=== PATIENT | male | born 1970 | race African-American/Black ===

== ENCOUNTER → 2017-11-21 | Outpatient (CLI) | payer OTHER, BC ==
[~2017-11-21] MED LIST: NAPROSYN500 MG PO; NOHOMEMEDICATIONS; TRAMADOL 50 MG50 MG PO; VALIUM5 MG PO
== END ==
LOC: HYPER 11-07 06:41
DX: L97.821 Non-pressure chronic ulcer of other part of left lower leg limited to breakdown of skin (principal); M54.5 Low back pain; F17.290 Nicotine dependence, other tobacco product, uncomplicated

== ENCOUNTER 2018-11-08 10:15 | Emergency (ER) | payer BC ==
[~2018-11-08] VITALS: Ht 182.9 cm; Wt 76.2 kg
--- NOTE | ~2018-11-08 | EMS ---
[address] [address] EMS Patient Care Report Name: ZHAO FOSTER Room #: DEP RAJIV Mayo#: [id number] Admission: 11/08/18 ������������������ Attend Phys: Discharge: 11/08/18 ������������������ Date of : 68 Report #: [id number] THIS REPORT FOR: //name// Report Transmitted: 11/09/2018 01:13 EMS Care Summary [place], [place]/[facility] Incident [id number] @ 11/08/2018 09:41 Incident Location [facility] [address] [place] [id number] Patient ZHAO FOSTER Male, 48 Years 1970 Patient Address [address] [place] [address] Patient History None Reported, Patient Allergies No known allergies, Patient Medications None Reported, Chief Complaint right sided chest pain Disposition Transported No Lights/[place] [facility] Reason Sick Person Transported To [facility] Narrative pt is found sitting in a truck at the scene. pt states that he woke up this morning and noticed that he had some minor pain to the right side of his chest. pt says that he did ignore the pain. pt now states that the pain is worse than it has been all day. pt describes the pain as sharp but non radiating. pt also [address] [address] EMS Patient Care Report Name: ZHAO FOSTER Room #: DEP ER Maria Esther#: [id number] Admission: 11/08/18 ������������������ Attend Phys: Discharge: 11/08/18 ������������������ Date of : 68 Report #: [id number] states that the pain does get worse with breathing and when the area is palpated. pt also complaining of being a little short of breath. pt denies any nausea or vomiting. pt has no other complaints of illness or injury. pt remains alert during transport. Initial Vitals @09:48P: 77,R: 16,GCS: 15,CO: 6,SpO2: 100,SC Suspected: false @09:47P: 85,R: 14,BP: 129/83,Pain: 8/10,GCS: 15,Revised Trauma: 12,SC Suspected: false @10:06P: 81,R: 14,BP: 125/80,Pain: 8/10,GCS: 15,CO: 5,Revised Trauma: 12, Assessments @09:45MENTAL:No Abnormalities,SKIN:No Abnormalities,HEENT:Head/Face: No Abnormalities,Eyes: No Abnormalities,Neck/Airway: No Abnormalities,LUNG SOUNDS:General: No Abnormalities,Left Upper: No Abnormalities,Right Upper: No Abnormalities,Left Lower: No Abnormalities,Right Lower: No Abnormalities,ABDOMEN:General: No Abnormalities,Left Upper: No Abnormalities,Right Upper: No Abnormalities,Left Lower: No Abnormalities,Right Lower: No Abnormalities,PELVIS//GI:No Abnormalities,EXTREMITIES:Left Arm: No Abnormalities,Right Arm: No Abnormalities,Left Leg: No Abnormalities,Right Leg: No Abnormalities,PULSE:NEURO:No Abnormalities, Impression Chest pain on breathing Procedures @09:45ALS AssessmentResponse: UnchangedSucceeded@09:483-Lead ECGResponse: UnchangedSucceeded@09:50Oxygen FlowRate: 3 Device: Nasal Cannula (NC) Response: UnchangedSucceeded@09:55Saline Lock 0cc (20 ga) Site: Forearm-RightResponse: UnchangedSucceeded Timeline 09:39,Call Received 09:39,Dispatch Notified 09:41,Dispatched 09:42,En Route 09:45,On Scene 09:45,At Patient 09:45,ALS Assessment,Response: UnchangedSucceeded, 09:47,BP: 129/83 M,PULSE: 85,RR: 14 R,SPO2: Ox,ETCO2: ,BG: ,PAIN: 8,GCS: 15, 09:48,3-Lead ECG,Response: UnchangedSucceeded, 09:48,BP: / M,PULSE: 77,RR: 16 R,SPO2: 100 Ox,ETCO2: ,BG: ,PAIN: ,GCS: 15, 09:50,Oxygen FlowRate: 3 Device: Nasal Cannula (NC) Response: UnchangedSucceeded, 09:55,Saline Lock 0cc 20 ga Site: Forearm-Right,Response: UnchangedSucceeded, 09:58,Depart Scene [facility] [address] [place] [address] EMS Patient Care Report Name: CRISTIANZHAO Room #: [facility] Maria Esther#: [id number] Admission: 11/08/18 ������������������ Attend Phys: Discharge: 11/08/18 ������������������ Date of : 68 Report #: [id number] 10:06,BP: 125/80 M,PULSE: 81,RR: 14 R,SPO2: Ox,ETCO2: ,BG: ,PAIN: 8,GCS: 15, 10:10,At Destination 10:31,Call Closed Disclaimer v1.1 Copyright 2019 [employer] This EMS Care Summary contains data elements from the applicable legal record (which may be displayed differently). It is designed to provide pertinent information for the following purposes: continuity of care, clinical quality, and state data reporting. The complete legal record is available to ED staff and administrators of the receiving hospital in [employer] Patient Tracker. All data is provided "as is."
[2018-11-08] MEDS ORDERED: CHANTIX1 EACH PO (10:26)
[2018-11-08 10:46] LABS: ABSOLUTE NEUTROPHILS 6.9 thou/uL (1.4-8.2); HEMATOCRIT 44.4 % (42.0-52.0); LYMPHOCYTES 28.6 % (24.0-44.0); MCH 31.1 pg (26.0-34.0); MCHC 33.8 g/dL (28.0-37.0); MCV 92.1 fL (80.0-100.0); MONOCYTES 5.7 % (1.0-8.0); POLYS 63.7 % (36.0-66.0); RBC 4.82 mil/uL (4.50-6.00); RDW 13.6 % (10.5-14.5); WBC 10.8 thou/uL (4.0-11.0)
[2018-11-08 10:54] LABS: ANION GAP 15 mmol/L (7-16); BUN 12 mg/dL (7-18); CALCIUM 9.3 mg/dL (8.5-10.1); CHLORIDE 106 mmol/L (98-107); CO2 21 mmol/L (21-32); CREATININE 1.2 mg/dL (0.7-1.3); GLUCOSE 99 mg/dL (74-106); POTASSIUM 3.9 mmol/L (3.5-5.1); SODIUM 142 mmol/L (136-145)
[2018-11-08 11:05] LABS: ALBUMIN 3.5 g/dL (3.4-5.0); SGOT 14 U/L (15-37); SGPT 11 U/L (30-65); TOTAL BILIRUBIN 0.4 mg/dL (<0.1-1.0); TOTAL PROTEIN 7.3 g/dL (6.4-8.2); TROPONIN-I <0.06 ng/mL (<0.06)
[2018-11-08 11:14] LABS: PLATELET COUNT 194 thou/uL (150-400); PLATELET ESTIMATE NORMAL
[2018-11-08] MEDS ORDERED: AUGMENTIN 875-1 EACH PO (13:36)
[2018-11-08 14:15] VITALS: BP 143/90
--- NOTE | 2018-11-09 17:13 | EKG ---
[place] [address] [address] [facility] [place] [address] ELECTROCARDIOGRAM REPORT Name: ZHAO FOSTER Room #: DEP RAJIV Mayo#: [id number] ������������������ Admission: 11/08/18 ������������������ Attend Phys: Discharge: 11/08/18 ������������������ Date of : 68 Report #: [id number] ����������������������������������������������������������������� [id number] THIS REPORT FOR: //name// [facility] ED Test Date: 2018-11-08 Test Time: 10:20:24 Pat Name: ZHAO FOSTER Department: Room: Gender: M [employer]: [place] : 1970 Requested By: Lula Goyal Order Number: [id number] MD: Yo Carter Measurements Intervals [place] Rate: 74 P: 77 SC: 144 QRS: 25 QRSD: 125 T: 27 QT: 400 QTc: 444 Interpretive Statements Sinus rhythm Normal tracing No previous ECG available for comparison Electronically Signed On 11-09-2018 17:13:03 CDT by Yo Carter [email or web address] ��������������������������������������������� <ELECTRONICALLY SIGNED> ���������������������������������������� By: Yo Carter MD, [facility] ��������������������������������������������� 11/09/18 1713 1020 1020 Yo Carter MD, FACC /EPI
== END 2018-11-08 14:15 | disposition home or self-care (01) ==
LOC: ER 10:15
PROVIDERS: Emergency Medicine Emergency Medical Services
DX: J18.9 Pneumonia, unspecified organism (principal); F17.210 Nicotine dependence, cigarettes, uncomplicated; Z98.890 Other specified postprocedural states

== ENCOUNTER → 2019-02-11 | Outpatient (CLI) | payer BC ==
[~2019-02-11] MED LIST changes: +AUGMENTIN 875-1 EACH PO; +CHANTIX1 EACH PO
== END ==
LOC: ULTRA 12:50 → CAT 12:50
DX: J98.4 Other disorders of lung (principal); K76.9 Liver disease, unspecified; R91.1 Solitary pulmonary nodule; J84.10 Pulmonary fibrosis, unspecified

== ENCOUNTER → 2019-08-22 | Outpatient (CLI) | payer BC | LOC: CAT 12:44 | PROVIDERS: ATTEND Family Medicine | DX: J84.10 Pulmonary fibrosis, unspecified (principal); K76.9 Liver disease, unspecified ==